=== PATIENT | female | born 1985 | race Caucasian/White ===

== ENCOUNTER 2022-02-07 23:16 | Emergency (ER) | payer MEDICAID ==
--- NOTE | 2022-02-08 00:15 | NUR ---
PATIENT CALL TO TRIAGE , NO RESPONSE PATIENT LEFT WITHOUT BEING SEEN BY DR. LÓPEZ. NO FURTHER CARE PROVIDED FOR PATIENT.
--- NOTE | 2022-02-08 00:25 | NUR ---
CALLED FOR SECOND TIME NO RESPONSE.
--- NOTE | 2022-02-08 00:40 | NUR ---
CALLED FOR THIRD TIME NO RESPONSE.
== END 2022-02-08 00:15 | disposition left against medical advice (07) ==
LOC: MED 23:16
DX: L29.9 Pruritus, unspecified (principal); Z53.21 Procedure and treatment not carried out due to patient leaving prior to being seen by health care provider